=== PATIENT | female | born 1990 | race Caucasian/White ===

== ENCOUNTER 2016-10-09 19:30 | Outpatient (CLI) | payer OTHER ==
[~2016-10-09] VITALS: Ht 162.6 cm; Wt 98.2 kg
[2016-10-09 20:54] VITALS: BP 125/64; PULSE 96; RESP 18
[2016-10-09] MEDS ORDERED: PRENAT PO (20:57)
[2016-10-09] MEDS ORDERED: FERR134T PO (20:57)
--- NOTE | 2016-10-10 02:17 | TRIAGE ---
OB Triage Datetime Report Generated by CPN: 10/10/2016 02:17 Datetime: 10/09/2016 20:12 EGA: 38.6 Datetime: 10/09/2016 19:43 EGA: 40.3 Datetime: 10/09/2016 19:30 Time of Arrival: 10/09/2016 19:25 Arrived By: Ambulatory Arrived From: Home Chief Complaint: w/ c/o ucs. States had placenta previa early in but now resolved Movement: Present Contractions: Regular Time Contractions Began: 10/08/2016 21:00 Contractions: q 2 min Rupture of Membranes: Denies Vaginal Bleeding: None Vaginal Discharge: Denies Recent Sexual Intercouse: Denies Abdominal Trauma: Not Applicable Patient Complaints: Contractions Time Provider Notified: 10/09/2016 20:40 Provider Notified: Dr Moody Initial Plan: SAVITA LAINEZ
--- NOTE | 2016-11-10 09:49 | QN ---
Documentation Comment 40.3 WEEKS FALSE LABOR PRESTON YANG MD November 10, 2016 09:49
== END 2016-10-09 21:00 | disposition home or self-care (01) ==
LOC: OBT 19:30 → L-D 19:39 → OBT 21:00
PROVIDERS: ATTEND Obstetrics & Gynecology
DX: O47.1 False labor at or after 37 completed weeks of gestation (principal); Z3A.40 40 weeks gestation of pregnancy
CPT/HCPCS: G0463

== ENCOUNTER 2016-10-10 18:10 | Outpatient (CLI) | payer OTHER ==
[~2016-10-10] VITALS: Ht 162.6 cm; Wt 98.0 kg
[~2016-10-10 18:10] MED LIST: FERR134T PO; PRENAT PO
[2016-10-10 18:25] VITALS: Ht 162.6 cm; Wt 98.0 kg
[2016-10-10] MEDS ORDERED: OXYTOCIN 30 UNITS/LR 500 ML IV PRN (18:30)
[2016-10-10] MEDS ORDERED: OXYTOCIN 30 UNITS/LR 500 ML IV SCH ×2 (18:30)
[2016-10-10] MEDS ORDERED: AMPICILLIN 2 GM/NS (PMX) 100 ML IV ONE (18:30)
[2016-10-10] MEDS ORDERED: IBUPROFEN 600 MG TAB PO PRN (18:30)
[2016-10-10] MEDS ORDERED: METHYLERGONOVINE 0.2 MG INJ IM PRN (18:30)
[2016-10-10] MEDS ORDERED: MISOPROSTOL 200 MCG TAB PR PRN (18:30)
[2016-10-10] MEDS ORDERED: LIDOCAINE 1% (MPF) 30 ML INJ INJ PRN (18:30)
[2016-10-10] MEDS ORDERED: CARBOPROST 250 MCG INJ IM PRN (18:30)
[2016-10-10] MEDS ORDERED: BUTORPHANOL 2 MG INJ IV PRN (18:30)
[2016-10-10] MEDS: LACTATED RINGER'S 1,000 ML IV SCH (18:41)
[2016-10-10 18:44] LABS: ADD SCAN DIFF NO
[2016-10-10 18:47] LABS: BASOPHILS % 0.4 % (0.0-2.0); EOSINOPHILS # 0.1 10^3/ul (0.0-0.5); EOSINOPHILS % 0.8 % (0.0-7.0); HEMATOCRIT 37.7 % (37.0-47.0); HEMOGLOBIN 12.5 g/dl (12.0-16.0); LYMPHOCYTES # 1.4 10^3/ul (0.8-2.9); LYMPHOCYTES % 14.5 % (15.0-51.0); MEAN CORPUSCULAR HEMOGLOBIN 28.5 pg (29.0-33.0); MEAN CORPUSCULAR HGB CONC 33.2 g/dl (32.0-37.0); MEAN CORPUSCULAR VOLUME 85.9 fl (82.0-101.0); MEAN PLATELET VOLUME 10.7 fl (7.4-10.4); MONOCYTE # 0.6 10^3/ul (0.3-0.9); MONOCYTES % 6.5 % (0.0-11.0); NEUTROPHIL # 7.2 10^3/ul (1.6-7.5); NEUTROPHILS % 76.3 % (39.0-77.0); PLATELET COUNT 215 10^3/UL (140-415); RED BLOOD COUNT 4.39 10^6/ul (4.20-5.40); RED CELL DISTRIBUTION WIDTH 13.9 % (11.5-14.5); WHITE BLOOD COUNT 9.5 10^3/ul (4.8-10.8)
[2016-10-10 19:00] LABS: INR 0.96; PROTIME 12.8 Sec (12.2-14.2)
[2016-10-10 19:01] LABS: PARTIAL THROMBOPLASTIN TIME 25.8 Sec (25.0-35.0)
[2016-10-10] MEDS ORDERED: LACTATED RINGER'S 1,000 ML IV PRN (20:00)
[2016-10-10] MEDS ORDERED: DINOPROSTONE 10 MG VAG SUPP VAG ONE (20:47)
[2016-10-10] MEDS: AMPICILLIN 1 GM/NS (PMX) 50 ML IV SCH (22:53)
[2016-10-11] MEDS: LACTATED RINGER'S 1,000 ML IV SCH ×2 (02:18→04:19)
[2016-10-11] MEDS: AMPICILLIN 1 GM/NS (PMX) 50 ML IV SCH ×3 (02:35→10:28)
--- NOTE | 2016-10-11 11:42 | PD.PPDC ---
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
--- NOTE | 2016-10-11 12:18 | RADRPT ---
PROCEDURE: OB ultrasound for biophysical profile CLINICAL INDICATION: Biophysical profile. . Macrosomia TECHNIQUE: Multiple sonographic images of the pelvis were obtained. Transabdominal view of the gr avid uterus are available for review. COMPARISON: None FINDINGS: Single intrauterine gestation. Presentation: Cephalic. breathing movement = 2/2 tone = 2/2 motion = 2/2 CAIN = 2/2 CAIN = 12.2 cm heart rate: 135 beats per minute IMPRESSION: Single intrauterine gestation. Biophysical profile 01/30 RPTAT: AADD .Franki Doyle MD, MD Date Time Electronically viewed and signed by .Franki Doyle MD, on 10/11/2016 12:18 .B/
--- NOTE | 2016-10-11 12:21 | RADRPT ---
PROCEDURE: Obstetrical ultrasound. CLINICAL INDICATION: , evaluation. Macrosomia TECHNIQUE: Transabdominal sonographic images of the pelvis are obtained. COMPARISON: No prior studies are available for comparison. FINDINGS: Single intrauterine gestation. There is a cephalic presentation. Measurements were made in order to determine age. The results are as follows: BPD = 9.53 cm HC = 34.09 cm AC = 35.26 cm FL = 7.06 cm Heart rate = 146 beats per minute The placenta is anterior. There is no evidence for an abruption or placenta previa. Ovaries are not visualized. IMPRESSION: Single intrauterine gestation of approximately 38 weeks 3 days by ultrasound criteria. [place] estimated weight = 3512 g; 52 percentile for gestational age of 39 weeks 2 days. RPTAT: AADD .Franki Doyle MD, Date Time Electronically viewed and signed by .Franki Doyle MD, MD on 10/11/2016 12:21 .B/
--- NOTE | 2016-10-11 14:25 | DS ---
DATE OF ADMISSION: 10/10/2016 DATE OF DISCHARGE: 10/11/2016 HISTORY OF PRESENT ILLNESS: This is a 25-year-old female, 3, para 2 with an EDC of 10/18/19 17. This patient was admitted on 10/10/2016 for an induction of labor to prevent macrosomia and bec ause of pelvic pain. The patient had a history of having care with ri without complication s. She had signed her tubal ligation papers. She had a placenta previa that moved. Otherwise, the was uneventful. She was diagnosed with group B strep late in and she was admit [facility] on 10/10/2016 for induction of labor, which did not work and the patient is being sent home on 0 10/11/2016. PAST MEDICAL HISTORY: As I said, with 2 vaginal deliveries, 1 with a macrosomic child the second on e with a macrosomic child, the same partner. ALLERGIES: THE PATIENT IS NOT ALLERGIC TO ANY MEDICATION. SOCIAL HISTORY: She does not drink or smoke, FAMILY HISTORY: There is no contributory family history. PHYSICAL EXAMINATION: VITAL SIGNS: The patient's vital signs are stable with a weight of 215 pounds. The blood pressure 120/80, pulse is 80, respirations 16. HEAD AND NECK: Normal. CHEST: Clear. HEART: Normal sinus rhythm. LUNGS: Clear. BREASTS: Soft, nontender, no masses. ABDOMEN: Soft. Uterus with irregular contractions. PELVIC: Cervix is still long and 1 cm, -3 station, membranes intact. EXTREMITIES: Normal with normal pulses, no edema and normal reflexes. DIAGNOSES: Term , macrosomia, for induction. PLAN: She is undergoing a discharge today after 24 hours of induction with Cervidil. Dictated By: PRESTON HASSAN/NTS Conf#: [id number] DID#: [id number]
== END 2016-10-11 12:15 | disposition home or self-care (01) ==
LOC: OBT 18:10 → L-D 18:10 → UNDOADMIN 18:10 → L-D 18:10 → OBT 10-11 12:15 → EDSTATUS 10-11 18:00
PROVIDERS: ATTEND Obstetrics & Gynecology
DX: O36.63X0 Maternal care for excessive fetal growth, third trimester, not applicable or unspecified (principal); R10.2 Pelvic and perineal pain; O61.0 Failed medical induction of labor; Z3A.00 Weeks of gestation of pregnancy not specified
CPT/HCPCS: 76815; 76818; 85025; 85610; 85730; 86592; 86900; 86901; 87340; J0290; J7120; Z7500; Z7610

== ENCOUNTER 2016-10-15 18:45 | Inpatient (IN) | payer OTHER ==
--- NOTE | 2016-10-11 14:51 | HP ---
Date/Time of Note Date/Time of Note DATE: 10/10/16 TIME: 14:45 OB - History Hx of Present Free Text/Dictation 39 weeks , having contractions and pain Last Menstrual Period: Jan 20, 2016 (01/20/1016) Estimated Due Date: Oct 17, 2016 : 3 Para: 2 Care: Good Care Ultrasounds: Normal mid trimester US Past Family/Social History * Past Medical, Surgical, Family and Obstetric Histories reviewed from chart. Blood Type: B+ Rubella: immune RPR/VDRL: Negative GBS Status: Positive HBsAG: Negative OB Admission Exam Vital Signs Vital Signs 120/80 Physical Exam HEENT: WNL Heart: Rhythm Normal Lungs: Clear, Equal Abdomen: WNL Extremities: Normal Reflexes: Normal Cervical Dilatation: 1cm Effacement: 0% Station: Ballotable Accelerations: Accelerations Present Varibility: Marked Contractions on Admission: 6-10 Minutes Apart Intensity: Mild OB Assessment/Plan Reason for admission: induction of labor Plan: Induction PRESTON YANG MD Oct 11, 2016 14:51
[~2016-10-15] VITALS: Ht 162.6 cm; Wt 97.7 kg
[2016-10-15] MEDS ORDERED: MISOPROSTOL 200 MCG TAB PR PRN (19:30)
[2016-10-15] MEDS ORDERED: CARBOPROST 250 MCG INJ IM PRN (19:30)
[2016-10-15] MEDS ORDERED: AMPICILLIN 2 GM/NS (PMX) 100 ML IV ONE (19:30)
[2016-10-15] MEDS ORDERED: METHYLERGONOVINE 0.2 MG INJ IM PRN (19:30)
[2016-10-15] MEDS ORDERED: OXYTOCIN 30 UNITS/LR 500 ML IV PRN (19:30)
[2016-10-15] MEDS ORDERED: LIDOCAINE 1% (MPF) 30 ML INJ INJ PRN (19:30)
[2016-10-15] MEDS ORDERED: OXYTOCIN 30 UNITS/LR 500 ML IV SCH ×2 (19:30)
[2016-10-15] MEDS ORDERED: LACTATED RINGER'S 1,000 ML IV PRN (19:30)
[2016-10-15 19:34] VITALS: Ht 162.6 cm; Wt 97.7 kg
[2016-10-15 19:35] VITALS: BP 126/69; PULSE 90; RESP 18
[2016-10-15 19:44] LABS: ADD SCAN DIFF NO
[2016-10-15 19:46] LABS: BASOPHILS % 0.3 % (0.0-2.0); EOSINOPHILS # 0.1 10^3/ul (0.0-0.5); HEMATOCRIT 36.8 % (37.0-47.0); HEMOGLOBIN 11.9 g/dl (12.0-16.0); LYMPHOCYTES # 1.4 10^3/ul (0.8-2.9); MEAN CORPUSCULAR HEMOGLOBIN 27.7 pg (29.0-33.0); MEAN CORPUSCULAR HGB CONC 32.3 g/dl (32.0-37.0); MEAN CORPUSCULAR VOLUME 85.8 fl (82.0-101.0); MEAN PLATELET VOLUME 10.9 fl (7.4-10.4); MONOCYTE # 0.7 10^3/ul (0.3-0.9); MONOCYTES % 6.4 % (0.0-11.0); NEUTROPHIL # 7.8 10^3/ul (1.6-7.5); NEUTROPHILS % 77.1 % (39.0-77.0); PLATELET COUNT 198 10^3/UL (140-415); RED BLOOD COUNT 4.29 10^6/ul (4.20-5.40); WHITE BLOOD COUNT 10.1 10^3/ul (4.8-10.8)
[2016-10-15 20:08] LABS: INR 0.95; PROTIME 12.7 Sec (12.2-14.2)
[2016-10-15 20:09] LABS: PARTIAL THROMBOPLASTIN TIME 26.6 Sec (25.0-35.0)
[2016-10-15] MEDS: LACTATED RINGER'S 1,000 ML IV SCH (20:24)
[2016-10-15] MEDS ORDERED: DINOPROSTONE 10 MG VAG SUPP VAG ONE (20:30)
[2016-10-15] MEDS ORDERED: BUTORPHANOL 2 MG INJ IV PRN (22:00)
[2016-10-16] MEDS: AMPICILLIN 1 GM/NS (PMX) 50 ML IV SCH ×5 (00:05→16:10)
[2016-10-16] MEDS: LACTATED RINGER'S 1,000 ML IV SCH ×2 (05:25→14:15)
--- NOTE | 2016-10-16 08:49 | RADRPT ---
PROCEDURE: US OB. CLINICAL INDICATION: Size and dates , post dates TECHNIQUE: Multiple sonographic images of the pelvis and gravid uterus were obtained. The images were reviewed on a PACS workstation. COMPARISON: 10/11/2016 FINDINGS: There is a single viable intrauterine gestation. Cardiac activity is present with 134 beats per min [place]. There is a vertex presentation. The placenta is left lateral. There is no evidence for an abruption or placenta previa. There is a normal amount of amniotic fluid with an CIAN = 9.6 cm. Measurements were made in order to determine age. The results are as follows: BPD =9.5 cm HC =33.8 cm AC =36.5 cm FL =7.1 cm Estimated gestational age of approximately 38 weeks and 4 days based on ultrasound measurements. Clinical age: 40 weeks and 0 days. The estimated date of delivery is 10/26/16, based on ultrasound measurements. The EFW = 3702 g, 57%, based on LMP age. RPTAT: AA IMPRESSION: Single viable intrauterine gestation of approximately 38 weeks and 4 days based on ultrasound measu rements. Smaller than clinical age by 1.5 weeks. .Bishnu Sequeira MD, MD Date Time Electronically viewed and signed by .Bishnu Sequeira MD, on 10/16/2016 08:49 .S/
--- NOTE | 2016-10-16 08:51 | RADRPT ---
PROCEDURE: US OB biophysical profile. CLINICAL INDICATION: decreased movements, post dates TECHNIQUE: Multiple sonographic images of the pelvis were obtained. The images were reviewed on a PACS workstation. COMPARISON: 10/11/2016 FINDINGS: There is a single viable intrauterine gestation. Cardiac activity is present with 125 beats per min alana. There is a vertex presentation. The placenta is left lateral. There is no evidence for an abruption or placenta previa. There is a normal amount of amniotic fluid with an CAIN = 9.6 cm. Biophysical profile: movement 2/2 tone 2/2. breathing 2/2 CAIN 2/2 Total 01/30 RPTAT: AA . IMPRESSION: Normal biophysical profile. . .Bishnu Sequeira MD, Date Time Electronically viewed and signed by .Bishnu Sequeira MD, on 10/16/2016 08:50 .S/
[2016-10-16] MEDS ORDERED: CEFAZOLIN 2 GM/50 ML (PMX) 50 ML IVPB ONE (16:00)
[2016-10-16] MEDS ORDERED: CITRIC ACID/SODIUM CITRATE 15 ML CUP PO ONE (18:30)
[2016-10-16] MEDS ORDERED: CITRIC ACID/NA CITRATE 30 ML CUP ONE (19:05)
[2016-10-16] MEDS ORDERED: morphine SULFATE/PF (10 MG/10 ML) INJ ONE (20:26)
[2016-10-16] MEDS ORDERED: METOCLOPRAMIDE 10 MG INJ ONE (20:26)
[2016-10-16] MEDS ORDERED: KETOROLAC 30 MG INJ ONE (20:26)
[2016-10-16] MEDS ORDERED: PHENYLephrine (100 MCG/ML) 5ML SYG ONE (21:14)
[2016-10-16] MEDS ORDERED: MEPERIDINE 100 MG INJ ONE (21:18)
[2016-10-16] MEDS ORDERED: BISACODYL (EC) 5 MG TAB PO PRN (21:30)
[2016-10-16] MEDS ORDERED: ZOLPIDEM 5 MG TAB PO PRN (21:30)
[2016-10-16] MEDS ORDERED: HYDROmorphONE 1 MG/ML SYG IV PRN ×4 (21:30→22:30)
[2016-10-16] MEDS ORDERED: DIPHENHYDRAMINE 50 MG CAP PO PRN (21:30)
[2016-10-16] MEDS ORDERED: HYDROCODONE/APAP (7.5/325) TAB PO PRN (21:30)
[2016-10-16] MEDS ORDERED: METHYLERGONOVINE 0.2 MG INJ ONE (21:34)
[2016-10-16] MEDS ORDERED: METOCLOPRAMIDE 10 MG INJ IV PRN (22:00)
[2016-10-16] MEDS: CEFAZOLIN 1 GM/50 ML (PMX) 50 ML IVPB SCH (22:00)
[2016-10-16] MEDS ORDERED: ONDANSETRON 4 MG INJ IV PRN ×2 (22:00→22:30)
[2016-10-16] MEDS ORDERED: HYDROmorphONE (0.2 MG/ML) 10ML SYG IV PRN ×3 (22:00)
[2016-10-16] MEDS ORDERED: DIPHENHYDRAMINE 50 MG INJ IV PRN (22:30)
[2016-10-16] MEDS ORDERED: NALOXONE (0.4 MG/ML) INJ IV PRN (22:30)
[2016-10-16] MEDS ORDERED: KETOROLAC 30 MG INJ IV PRN (22:30)
[2016-10-16] MEDS ORDERED: OXYTOCIN 30 UNITS/LR 0 ML IV ONE (22:34)
--- NOTE | 2016-10-16 22:49 | OPR ---
Date/Time of Note Date/Time of Note DATE: 10/16/16 TIME: 22:46 Operative Report Procedure Date: Oct 16, 2016 Preoperative Diagnosis term no progress of labor multiparity diagonal lie Postoperative Diagnosis same Operation Performed PRIMARY C/S TL BILATERAL SALPINGECTOMY Surgeon: PRESTON YANG MD Operating Engineer Apprentice: KENNY SHELDON Anesthesia: spinal Anesthesiologist: ODELL ISLAS MD Estimated Blood Loss: other Specimens PLACENTA Complications: None Pt Condition Post Procedure: stable Disposition: PACU PRESOTN YANG MD Oct 16, 2016 22:48
--- NOTE | 2016-10-16 22:58 | PREOPHP ---
DATE OF ADMISSION: 10/15/2016 HISTORY OF PRESENT ILLNESS: This is a 25-year-old female, 3, para 2 with previous 2 vaginal deliveries, EDC 10/17/2016 by ultrasound, and last period 01/20/2016. The patient had car e with me since early . She had an uneventful with a partial previa that resolve d, history of GBS positive during the , and about 30 pounds of weight gain during the pregn brandon. Otherwise, the was uneventful. The patient reached her due date and a week ago she was induced due to uterine contractions and uncomfortable of pelvic pain constantly on and off with irregular contractions. The patient, after 2 days of induction, was sent home. The presentation n ever came down and did not dilate. She contracted to a regular pattern without progress of her labo r, so she was sent home. The patient came back after a week and she is still complaining of pelvic pain. She was advised for induction again since she is due tomorrow. She was noninducible, so she had a BPP and NST that were normal and was offered to be sent home, since she not look like she was going to deliver vaginally due to the position of the baby that was diagonal and -3, untouchable vag inally. The patient refused to go home and she wanted to have this baby by section and als o to have a salpingectomy as her choice due to multiparity. She was advised that by having a salpin gectomy, she would not be able to get or have a reanastomosis of her tubes. She did not wa nt to have any more children in her life. She decided for a salpingectomy instead of a partial salp ingectomy. The patient otherwise had a normal . PAST MEDICAL HISTORY: Unremarkable with no surgeries, no medical antecedents. ALLERGIES: SHE HAD NO ALLERGIES. FAMILY HISTORY: Also unremarkable. PHYSICAL EXAMINATION: VITAL SIGNS: Normal. She weighs 210 pounds. Blood pressure is 120/80, pulse is 80, respirations 1 6. She was afebrile. HEAD AND NECK: Normal. CHEST: Clear. HEART: Normal sinus rhythm. LUNGS: Clear. BREASTS: Soft, nontender. No masses. ABDOMEN: Soft. Uterus large with contractions that were started by Cervidil that was removed after 12 hours. The size was about 8 pounds by ultrasound, in diagonal position. The positi on was variable up to the end. About 2 weeks ago, the baby was breech. PELVIC: With a 1 cm dilation, no effacement, -3 station, membranes intact. EXTREMITIES: Normal with normal pulses, no edema, normal reflexes. DIAGNOSES: 1. No progress of labor. 2. Multiparity. PLAN: She is undergoing a primary section and tubal ligation. The patient was advised of the possible risks and possible complications of the procedure with her alternatives and options. Lucila clark information was provided. She had no more questions and agreed to go ahead with the procedur e with full understanding and no more questions. Dictated By: PRESTON HASSAN/BASIA Conf#: [id number] DID#: [id number]
[2016-10-16] MEDS ORDERED: DIPHENHYDRAMINE 50 MG INJ IV ONE (23:00)
[2016-10-16] MEDS ORDERED: OXYTOCIN 30 UNITS/LR 500 ML IV ONE (23:46)
[2016-10-16] MEDS: KETOROLAC 30 MG INJ IV SCH (23:52)
--- NOTE | 2016-10-17 00:54 | OPR ---
DATE OF OPERATION: REASON FOR ADMISSION: Induction of labor. PROCEDURES DONE: Primary section and tubal ligation. PREOPERATIVE DIAGNOSES: 1. Term . 2. No progress of labor. 3. Multiparity. 4. Variable presentation. POSTOPERATIVE DIAGNOSES: 1. Term . 2. No progress of labor. 3. Multiparity. 4. Variable presentation. SURGEON: Preston Moody MD MELTING OPERATOR: Kellen Benitez MD ANESTHESIOLOGIST: rTinidad Wood MD ANESTHESIA: Spinal. COMPLICATIONS: None. PROCEDURE: The patient was given spinal anesthesia, placed in the supine position. The abdomen was prepped and draped, and a Mckenzie catheter was placed in the bladder. A transverse incision going 2 cm up the pubic bone was made of about 10 cm in length. The abdomen was opened in layers without di fficulties. The abdominal cavity was reached. The lower uterine segment was identified, and the pr esentation was found as diagonal presentation up above the incision. The self-retaining Chivo retr actor was placed in. The bladder flap was made. The uterus was opened in the midline with a scalpe l, and the incision was increased laterally on either side for about 3 inches. The baby's head was helped with the vacuum, and the delivery was uneventful. The cord was clamped and cut. The baby wa s handed over to the holistic health practitioner team. It was a baby boy, 9. The cord was clamped and cut. Cord blood was obtained. The placenta was removed, and the uterus was swabbed out and cleaned out . The uterus was closed with #1 Monocryl continuous suture imbedding the first line of suture, and hemostasis was good. Interrupted sutures with 0 MH chromic were used for further control of hemosta sis. The cavity was cleaned out, and the tubes and ovaries were examined to be normal. The uterus was normal as well. The mesosalpinx of the left tube first was clamped, and the whole tube was codie ventura up to 1 cm from the cornua, and the tube was removed and the mesosalpinx was tied with #2-0 Vicr yl and reinforced with #2-0 Vicryl. The same thing was done on the other side. Both ovaries were n ormal. A piece of Interceed was left on the incisional area to prevent adhesions. The abdominal ca vity had been cleaned out and closed in layers using a 2-0 Vicryl suture for peritoneum, 0 PDS loope d suture for the fascia, 2-0 Vicryl for the subcutaneous tissue, 3-0 Monocryl subcuticular to the sk in and Dermabond and Steri-Strips. The patient tolerated the procedure well and left the OR awake a nd stable. Sponge counts, instrument counts, needle counts were correct, and intravenous antibiotic s were given for prophylaxis. Dictated By: PRESTON HASSAN/BASIA Conf#: [id number] DID#: [id number]
[2016-10-17 01:35] VITALS: BP 122/58; PULSE 98; RESP 18
[2016-10-17 04:00] VITALS: BP 108/57; PULSE 85; RESP 18
[2016-10-17] MEDS: KETOROLAC 30 MG INJ IV SCH ×4 (04:08→17:40)
[2016-10-17] MEDS: LACTATED RINGER'S 1,000 ML IV SCH ×3 (04:09→21:05)
[2016-10-17] MEDS: CEFAZOLIN 1 GM/50 ML (PMX) 50 ML IVPB SCH ×3 (06:13→21:33)
[2016-10-17] MEDS: METOCLOPRAMIDE 10 MG TAB PO SCH ×5 (06:25→23:58)
[2016-10-17 08:12] LABS: ADD SCAN DIFF NO
[2016-10-17 08:23] VITALS: BP 101/59; PULSE 83; RESP 19
[2016-10-17 08:34] LABS: BASOPHILS % 0.2 % (0.0-2.0); EOSINOPHILS % 0.2 % (0.0-7.0); HEMOGLOBIN 10.8 g/dl (12.0-16.0); MONOCYTE # 0.6 10^3/ul (0.3-0.9)
[2016-10-17 08:43] LABS: POTASSIUM 3.8 mmol/L (3.5-5.1)
[2016-10-17 08:45] LABS: CREATININE 0.5 mg/dl (0.44-1.00)
[2016-10-17 11:15] VITALS: BP 110/64; PULSE 86; RESP 20
[2016-10-17 11:38] LABS: HEMATOCRIT 34.1 % (37.0-47.0); LYMPHOCYTES # 1.2 10^3/ul (0.8-2.9); LYMPHOCYTES % 9.6 % (15.0-51.0); MEAN CORPUSCULAR HEMOGLOBIN 27.8 pg (29.0-33.0); MEAN CORPUSCULAR HGB CONC 31.7 g/dl (32.0-37.0); MEAN CORPUSCULAR VOLUME 87.9 fl (82.0-101.0); MEAN PLATELET VOLUME 11.4 fl (7.4-10.4); MONOCYTES % 4.8 % (0.0-11.0); NEUTROPHIL # 10.3 10^3/ul (1.6-7.5); NEUTROPHILS % 84.5 % (39.0-77.0); PLATELET COUNT 163 10^3/UL (140-415); RED BLOOD COUNT 3.88 10^6/ul (4.20-5.40); RED CELL DISTRIBUTION WIDTH 14.2 % (11.5-14.5); WHITE BLOOD COUNT 12.2 10^3/ul (4.8-10.8)
--- NOTE | 2016-10-17 12:53 | PN ---
Date/Time of Note Date/Time of Note DATE: 10/17/16 TIME: 12:52 Assessment/Plan Lines/Catheters IV Catheter Type (from Nrsg): Peripheral IV Subjective 24 Hr Interval Summary DAY 2 POST C/S TL AFEBRILE , FEELS GOOD. UTERUS CONTRACTED. LOCHIA NORMAL. BREAST FEEDING Constitutional: BM, ambulates, flatus, improved, no complaints, urine output Feeding: advancing diet Pain Control: well controlled Detailed Summary Eyes: no complaints ENT: no complaints Respiratory: no complaints Cardiovascular: no complaints Gastrointestinal: no complaints Genitourinary: no complaints Musculoskeletal: no complaints Skin: no complaints Neurologic: no complaints Endocrine: no complaints Lymphatic: no complaints Psychological: nl mood/affect, no complaints Immunologic: no complaints Exam/Review of Systems Vital Signs Vitals Vital Signs Date Time Temp Pulse Resp B/P Pulse Ox O2 Delivery O2 Flow Rate FiO2 10/17/16 11:15 98.2 86 20 110/64 Room Air 10/17/16 09:09 97 21 Intake and Output 10/16/16 10/16/16 10/17/16 15:00 23:00 07:00 Intake Total 1100 ml 1425 ml 4520 ml Output Total 1700 ml 1350 ml 780 ml Balance -600 ml 75 ml 3740 ml Exam Constitutional: alert, oriented, well developed Psych: nl mood/affect, no complaints Head: atraumatic, normocephalic Eyes: EOMI, nl conjunctiva, nl lids, nl sclera ENMT: mucosa pink and moist, nl external ears & nose, nl lips & teeth, nl nasal mucosa & septum Neck: non-tender, supple Respiratory: clear to auscultation, normal air movement Cardiovascular: nl pulses, regular rate and rhythm Gastrointestinal: nl liver, spleen, non-tender, soft Musculoskeletal: nl extremities to inspection, nl gait and stance Extremities: normal pulses Neurological: 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
[2016-10-17] MEDS ORDERED: BISACODYL (EC) 5 MG TAB PO ONE (13:30)
[2016-10-17 16:00] VITALS: BP 118/59; PULSE 88; RESP 18
[2016-10-17 20:00] VITALS: BP 112/58; PULSE 94; RESP 18
--- NOTE | 2016-10-17 22:44 | PN ---
Date/Time of Note Date/Time of Note DATE: 10/17/16 TIME: 22:42 Assessment/Plan VTE Prophylaxis VTE Prophylaxis Intervention: ambulation, anti-embolic stocking Lines/Catheters IV Catheter Type (from Nrsg): Peripheral IV Subjective 24 Hr Interval Summary Free Text/Dictation anesthesia note: A 25 year old female s/p spinal duranorph, pod #1is doing welll, pain is controlled, no n/v, itching, headache. back is clean, care per surgery team Exam/Review of Systems Vital Signs Vitals Vital Signs Date Time Temp Pulse Resp B/P Pulse Ox O2 Delivery O2 Flow Rate FiO2 10/17/16 20:10 97 21 10/17/16 20:00 97.8 94 18 112/58 Room Air Intake and Output 10/16/16 10/16/16 10/17/16 15:00 23:00 07:00 Intake Total 1100 ml 1425 ml 4520 ml Output Total 1700 ml 1350 ml 780 ml Balance -600 ml 75 ml 3740 ml Results Result Diagram: 10/17/16 0803 10/17/16 0803 Results 24 hrs Laboratory Tests Test 10/17/16 08:03 White Blood Count 12.2 #H Red Blood Count 3.88 L Hemoglobin 10.8 L Hematocrit 34.1 L Mean Corpuscular Volume 87.9 Mean Corpuscular Hemoglobin 27.8 L Mean Corpuscular Hemoglobin Concent 31.7 L Red Cell Distribution Width 14.2 Platelet Count 163 Mean Platelet Volume 11.4 H Neutrophils % 84.5 H Lymphocytes % 9.6 L Monocytes % 4.8 Eosinophils % 0.2 Basophils % 0.2 Nucleated Red Blood Cells % 0.0 Neutrophils # 10.3 H Lymphocytes # 1.2 Monocytes # 0.6 Eosinophils # 0.0 Basophils # 0.0 Nucleated Red Blood Cells # 0.0 Sodium Level 133 L Potassium Level 3.8 Chloride Level 101 Carbon Dioxide Level 23 Anion Gap 13 Blood Urea Nitrogen 7 Creatinine 0.50 Medications Medications Current Medications Lactated Ringer's 1,000 ml @ 125 mls/hr Q8H IV Last administered on 10/17/16t 21:05; Admin Dose 125 MLS/HR; Start 10/16/16 at 21:13 Cefazolin Sodium (Ancef 1 Gm/50 ml (Pmx)) 50 ml @ 100 mls/hr Q8 IVPB Last administered on 10/17/16 21:33; Admin Dose 100 MLS/HR; Start 10/16/16 at 22:00 Zolpidem Tartrate (Ambien) 10 mg HS PRN PO INSOMNIA; Start 10/16/16 at 21:30 Metoclopramide HCl (Reglan) 10 mg Q6 PO Last administered on 10/17/16 17:34; Admin Dose 10 MG; Start 10/17/16 at 00:00 Simethicone (Mylicon) 160 mg Q6 PO Last administered on 10/17/16 17:34; Admin Dose 160 MG; Start 10/17/16 at 00:00 Bisacodyl (Dulcolax) 10 mg DAILY PRN PO CONSTIPATION; Start 10/16/16 at 21:30 Hydromorphone HCl (Dilaudid) 1 mg Q4H PRN IV PAIN; Start 10/16/16 at 21:30 Acetaminophen/ Hydrocodone Bitart (Seltzer (5/325)) 1 tab Q6H PRN PO PAIN LEVEL 4 -6; Start 10/16/16 at 21:30 Acetaminophen/ Hydrocodone Bitart (Seltzer (5/325)) 2 tab Q6H PRN PO PAIN LEVEL 7 -10; Start 10/16/16 at 21:30 Acetaminophen/ Hydrocodone Bitart (Seltzer (7.5-325)) 1 tab Q6H PRN PO PAIN LEVEL 4-7; Start 10/16/16 at 21:30 Ketorolac Tromethamine (Toradol) 30 mg Q6H IV Last administered on 10/17/16 17 :40; Admin Dose 30 MG; Start 10/16/16 at 21:30; Stop 10/18/16 at 21:29 Diphenhydramine HCl (Benadryl) 50 mg Q6H PRN PO ITCHING; Start 10/16/16 at 21: 30 ODELL ISLAS MD Oct 17, 2016 22:44
[2016-10-17] MEDS: HYDROCODONE/APAP (5/325) TAB PO PRN (23:59)
[2016-10-18 04:00] VITALS: BP 110/62; PULSE 83; RESP 17
[2016-10-18] MEDS: CEFAZOLIN 1 GM/50 ML (PMX) 50 ML IVPB SCH (05:53)
[2016-10-18] MEDS: KETOROLAC 30 MG INJ IV SCH (05:53)
[2016-10-18] MEDS: METOCLOPRAMIDE 10 MG TAB PO SCH ×3 (05:53→17:17)
[2016-10-18 08:04] LABS: ADD SCAN DIFF NO
[2016-10-18 08:09] LABS: BASOPHILS % 0.4 % (0.0-2.0); EOSINOPHILS # 0.1 10^3/ul (0.0-0.5); EOSINOPHILS % 0.5 % (0.0-7.0); HEMATOCRIT 32.2 % (37.0-47.0); HEMOGLOBIN 10.5 g/dl (12.0-16.0); LYMPHOCYTES # 1.4 10^3/ul (0.8-2.9); LYMPHOCYTES % 12.7 % (15.0-51.0); MEAN CORPUSCULAR HEMOGLOBIN 28.2 pg (29.0-33.0); MEAN CORPUSCULAR HGB CONC 32.6 g/dl (32.0-37.0); MEAN CORPUSCULAR VOLUME 86.6 fl (82.0-101.0); MEAN PLATELET VOLUME 10.5 fl (7.4-10.4); MONOCYTE # 0.6 10^3/ul (0.3-0.9); MONOCYTES % 5.7 % (0.0-11.0); NEUTROPHIL # 8.9 10^3/ul (1.6-7.5); NEUTROPHILS % 79.8 % (39.0-77.0); PLATELET COUNT 167 10^3/UL (140-415); RED BLOOD COUNT 3.72 10^6/ul (4.20-5.40); RED CELL DISTRIBUTION WIDTH 14.3 % (11.5-14.5); WHITE BLOOD COUNT 11.1 10^3/ul (4.8-10.8)
[2016-10-18 08:45] VITALS: BP 111/75; PULSE 82; RESP 20
[2016-10-18 11:43] VITALS: BP 133/86; PULSE 106; RESP 20
[2016-10-18] MEDS: HYDROCODONE/APAP (5/325) TAB PO PRN ×2 (12:03→18:12)
--- NOTE | 2016-10-18 12:55 | PN ---
Date/Time of Note Date/Time of Note DATE: 10/18/16 TIME: 12:54 Assessment/Plan Lines/Catheters IV Catheter Type (from Nrsg): Peripheral IV Subjective 24 Hr Interval Summary AFEBRILE DAY 2 AFTER C/STL FEELS GOOD. PAIN IS CONTROLLED. UTERUS CONTRACTED LOCHIA NORMAL Detailed Summary Eyes: no complaints ENT: no complaints Respiratory: no complaints Cardiovascular: no complaints Gastrointestinal: no complaints Genitourinary: no complaints Musculoskeletal: no complaints Skin: no complaints Neurologic: no complaints Endocrine: no complaints Lymphatic: no complaints Psychological: nl mood/affect, no complaints Immunologic: no complaints Exam/Review of Systems Vital Signs Vitals Vital Signs Date Time Temp Pulse Resp B/P Pulse Ox O2 Delivery O2 Flow Rate FiO2 10/18/16 11:43 98.2 106 20 133/86 Room Air 10/17/16 20:10 97 21 Intake and Output 10/17/16 10/17/16 10/18/16 15:00 23:00 07:00 Intake Total 2660 ml 2710 ml 250 ml Output Total 800 ml 4550 ml 800 ml Balance 1860 ml -1840 ml -550 ml Exam Constitutional: alert, oriented, well developed Psych: nl mood/affect, no complaints Head: atraumatic, normocephalic Eyes: EOMI, nl conjunctiva, nl lids, nl sclera ENMT: mucosa pink and moist, nl external ears & nose, nl lips & teeth, nl nasal mucosa & septum Neck: non-tender, supple Respiratory: clear to auscultation, normal air movement Cardiovascular: nl pulses, regular rate and rhythm Gastrointestinal: nl liver, spleen, non-tender, soft Musculoskeletal: nl extremities to inspection, nl gait and stance Extremities: normal pulses Neurological: CUSTOMER COUNTER REPRESENTATIVE II-XII intact, nl mental status, nl speech, nl strength Skin: nl turgor, rash or lesions Lymph: nl lymph nodes Results Result Diagram: 10/18/16 0741 10/17/16 0803 PRESTON YANG MD Oct 18, 2016 12:55
[2016-10-18] MEDS ORDERED: BISACODYL (EC) 5 MG TAB PO ONE (13:00)
[2016-10-18] MEDS: KETOROLAC 30 MG INJ IM PRN ×2 (15:47→21:55)
[2016-10-18 16:00] VITALS: BP 115/73; PULSE 101; RESP 18
[2016-10-18 20:00] VITALS: BP 112/57; PULSE 97; RESP 18
[2016-10-19 00:15] VITALS: BP 115/73; PULSE 85; RESP 19
[2016-10-19] MEDS: HYDROCODONE/APAP (5/325) TAB PO PRN ×3 (01:13→12:43)
[2016-10-19 04:00] VITALS: BP 110/68; PULSE 75; RESP 19
[2016-10-19] MEDS: METOCLOPRAMIDE 10 MG TAB PO SCH ×3 (05:38→13:32)
[2016-10-19 08:00] VITALS: BP 130/73; PULSE 90; RESP 20
[2016-10-19 12:00] VITALS: BP 127/66; PULSE 77; RESP 18
--- NOTE | 2016-10-19 12:21 | PD.PPDC ---
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 Patient Condition: Good Diet Diet: Resume Regular Diet Activity/Restrictions Activity: Normal Activity May Shower Restrictions: No Exercising No Lifting No Driving No Sexual Activity Nothing in the Vagina No [place] No Tampons, douche Wound/Drain Care Instructions Wound/Drain Care Instructions: Remove Steri Strips in 1 week Wash with soap and water Keep clean and dry Follow-up Follow-up with Physician: 2, Week/Weeks Return to clinic for RESP THERAPIST Instructions: Fever greater than 101 Chills Worsening abdominal pain Excessive Vaginal Bleeding More than 2 pads per hour Unable to tolerate diet OB Instructions: Breast Tenderness Depression Blurried Vision Headache Surgical Instructions: Incisional Drainage Incisional Redness PRESTON YANG MD Oct 19, 2016 12:21
--- NOTE | 2016-10-19 14:06 | DS ---
DATE OF ADMISSION: 10/15/2016 DATE OF DISCHARGE: HISTORY: This is a 25-year-old female, 3, para 2 with 2 previous vaginal deliveries. This patient has been coming in and out of the hospital with pain, and she has been admitted for an induc tion of labor due to her contractions and has been very frequently with severe back pain and patient was in severe pain at home. The presentation was high in the pelvis and with induction never came down. The baby was estimated to be large, and she did not want to go home for failure of induction, which she actually had done a week prior due to the same reason, due to pelvic pain she was trying for induction and she had been sent home. She did not want to go home. She would rather have a C-s ection and a tubal ligation. She underwent the procedure without complications, and she is being se nt home on her third postoperative day with instructions of what to do and not to do, with ibuprofen and [place] p.r.n., with normal laboratory testing, being afebrile with some anemia that was asymptom atic, and she is to be taking her vitamins and iron at home. She is ambulatory, voiding well, daylin ating diet, with a clean incision and with no pain with p.o. medication. She is being discharged wi th further instructions of what to do and not to do. FINAL DIAGNOSES: 1. Term , no progress of labor. 2. Multiparity. 3. She underwent a section and tubal ligation without complications. Dictated By: PRESTON HASSAN/BASIA Conf#: [id number] DID#: [id number]
== END 2016-10-19 15:00 | disposition home or self-care (01) | DRG 766 ==
LOC: L-D 18:45 → PP1 10-17 01:30 → EDSTATUS 10-17 18:48
PROVIDERS: ADMIT Obstetrics & Gynecology; ATTEND Obstetrics & Gynecology
PROC: 0UL70ZZ Occlusion of Bilateral Fallopian Tubes, Open Approach (ICD-10-PCS; 2016-10-16)
PROC: 10D00Z1 Extraction of Products of Conception, Low, Open Approach (ICD-10-PCS; principal; 2016-10-16 19:00)
DX: O99.214 Obesity complicating childbirth (principal); E66.9 Obesity, unspecified; Z68.37 Body mass index [BMI] 37.0-37.9, adult; O62.0 Primary inadequate contractions; Z30.2 Encounter for sterilization; Z3A.39 39 weeks gestation of pregnancy; Z37.0 Single live birth
CPT/HCPCS: 76815; 76818; 80051; 82565; 84520; 85025; 85610; 85730; 86592; 86900; 86901; 87070; 88302; 88307; 94760; 99464; J0290; J0690; J1885; J2175; J2210; J2274; J2370; J2590; J2765; J7120